=== PATIENT | male | born 1970 | race Caucasian/White ===

== ENCOUNTER 2017-06-14 14:10 | Emergency (ER) | payer OTHER ==
[~2017-06-14] VITALS: Ht 180.3 cm; Wt 117.4 kg
[~2017-06-14 14:10] MED LIST: DOXY-300 PO
[2017-06-14 14:13] VITALS: TEMP 36.9; Ht 180.3 cm; Wt 117.4 kg
[2017-06-14] MEDS ORDERED: MINOCYCLINE PO (14:23)
[2017-06-14] MEDS ORDERED: FLUT0.15 PO (14:23)
[2017-06-14] MEDS ORDERED: OXYCODONE/ACETAMINOPHEN 5-325 TAB PO STA (14:35)
--- NOTE | 2017-06-14 15:29 | DIAGNOSTIC IMAGING REPORT ---
RIGHT SHOULDER 3 VIEWS HISTORY: injury Right COMPARISON: None. FINDINGS: No fracture or dislocation within the right humerus. There is a mid shaft clavicle fracture demonstrating mild overlap and 1.5 cm of inferior displacement. The AC joint is well aligned. There are right third through fifth rib fractures. No pneumothorax. No radiopaque foreign bodies. IMPRESSION: 1. Displaced midshaft right clavicle fracture. 2. Nondisplaced right third through fifth fractures. Better appreciated on the same day rib series. Electronically signed by: Azeem Yap M.D. 06/14/2017 3:28 PM Dictated Date/Time: 06/14/2017 3:26 PM
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
[2017-06-14] MEDS ORDERED: OXYC-57 PO (16:16)
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
[2017-06-14 16:31] VITALS: BP 147/90; PULSE 83; O2SAT 97
[2017-06-14] MEDS ORDERED: PERCOCET HOME PACK PO ONE (17:15)
== END 2017-06-14 17:16 | disposition home or self-care (01) ==
LOC: C.EDB 14:11 → C.EDC 17:16
DX: S42.001A Fracture of unspecified part of right clavicle, initial encounter for closed fracture (principal); S22.41XA Multiple fractures of ribs, right side, initial encounter for closed fracture; M54.2 Cervicalgia; V86.69XA Passenger of other special all-terrain or other off-road motor vehicle injured in nontraffic accident, initial encounter; F17.210 Nicotine dependence, cigarettes, uncomplicated